=== PATIENT | male | born 1945 | race Caucasian/White ===

== ENCOUNTER 2021-11-03 16:22 | Observation (INO) | payer OTHER ==
[2021-11-03 17:13] LABS: Absolute Lymphocytes (CBC) 2.1 K/uL (0.7-4.9); Hematocrit 41.1 % (39.6-49.0); Lymphocytes % 21.7 % (15.3-44.8); MPV 8.4 fL (7.6-11.3); RBC Red Blood Cell Count 4.44 M/uL (4.33-5.43)
[2021-11-03 17:17] LABS: Protime INR 0.98
[2021-11-03 17:33] LABS: Albumin 3.4 g/dL (3.4-5.0); Bilirubin Direct 0.1 mg/dL (0-0.2); Bilirubin Total 0.4 mg/dL (0.2-1.0); Magnesium 2.2 mg/dL (1.8-2.4); Potassium 4.2 mmol/L (3.5-5.1); Protein, Total 6.7 g/dL (6.4-8.2); Troponin High Sensitivity 6.9 pg/mL (<58.9)
[2021-11-03] MEDS ORDERED: NA CHLORIDE 0.9% 500 ML ONE (18:03)
--- NOTE | 2021-11-03 18:08 | RAD REPORT ---
EXAM DESCRIPTION: CT - Head Brain Wo Cont - 11/03/2021 5:57 pm CLINICAL HISTORY: Syncope COMPARISON: None TECHNIQUE: Computed axial tomography of the head was obtained. IV contrast was not requested. All CT scans are performed using dose optimization technique as appropriate and may include automated exposure control or mA/KV adjustment according to patient size. FINDINGS: An intracranial bleed is not seen . The ventricles are normal in caliber. No extra-axial fluid collection is noted. Mild cerebral atrophy Fluid within the sinuses/ mastoids is not seen. IMPRESSION: No acute intracranial abnormality is seen. If patient's symptoms persist MRI of the bra in would be recommended.
--- NOTE | 2021-11-03 18:10 | RAD REPORT ---
EXAM DESCRIPTION: Maira Single View11/03/2021 5:06 pm CLINICAL HISTORY: Syncope COMPARISON: none FINDINGS: The lungs appear clear of acute infiltrate. The heart is borderline enlarged IMPRESSION: No acute abnormalities displayed
--- NOTE | 2021-11-03 18:31 | ER ---
Nurse's Notes [facility] Name: Justice Duque Jr Age: 76 yrs Sex: Male : 1945 Arrival Date: 11/03/2021 Time: 16:23 Bed 8 Private MD: Diagnosis: Syncope Presentation: 11/03 16:23 Chief complaint: EMS states: "the pt was at a dermatology clinic. he was being treated jd3 for pre cancerous spots on the inside portion of his arms. upon finishing his treatment he had a syncope episode. upon waking up, he felt nauseous and vomited. we started a 20 G IV to the right AC and gave 4 mg of Zofran and about 100 ml of NS.". Coronavirus screen: At this time, the client does not indicate any symptoms associated with coronavirus-19. Ebola Screen: No symptoms or risks identified at this time. Initial Sepsis Screen: Does the patient meet any 2 criteria? No. Patient's initial sepsis screen is negative. Does the patient have a suspected source of infection? No. Patient's initial sepsis screen is negative. Risk Assessment: Do you want to hurt yourself or someone else? Patient reports no desire to harm self or others. Onset of symptoms was November 03, 2021. 16:23 Method Of Arrival: EMS: [facility] jd3 16:23 Acuity: TC 2 jd3 Triage Assessment: 16:30 General: Appears distressed, comfortable, Behavior is cooperative, appropriate for age, bp anxious. Pain: Denies pain. EENT: No deficits noted. Neuro: Level of Consciousness is awake, alert, obeys commands, Oriented to Appropriate for age. Cardiovascular: Rhythm is sinus rhythm. Respiratory: No deficits noted. GI: No signs and/or symptoms were reported involving the gastrointestinal system. : No signs and/or symptoms were reported regarding the genitourinary system. Derm: No deficits noted. Musculoskeletal: No deficits noted. 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 - Social history:: Smoking status: Patient/guardian denies using tobacco, but has a distant history of tobacco abuse. Screenin:30 Abuse screen: Denies threats or abuse. Denies injuries from another. Nutritional bp screening: No deficits noted. Tuberculosis screening: No symptoms or risk factors identified. Fall Risk None identified. Assessment: 16:30 General: SEE TRIAGE NOTE. bp 17:47 Reassessment: No changes from previously documented assessment. Patient and/or family bp updated on plan of care and expected duration. Pain level reassessed. PT TO CT. 18:30 Reassessment: ADMIT INITIATED. bp 19:56 General: Appears in no apparent distress. comfortable, Behavior is calm, cooperative. al4 Pain: Denies pain. Neuro: Level of Consciousness is awake, alert, obeys commands, Oriented to person, place, time, situation. Cardiovascular: Capillary refill < 3 seconds Patient's skin is warm and dry. Respiratory: Airway is patent Respiratory effort is unlabored, Respiratory pattern is regular. Musculoskeletal: Range of motion: intact in all extremities. 20:01 Reassessment: I had a detailed discussion with patient and family member on the risks al4 vs benefits of leaving AMA. Patient and family member demonstrated understanding and would still like to leave. Vital Signs: 16:29 BP 149 / 72; Pulse 76; Resp 19 S; Temp 97.7(TE); Pulse Ox 95% on R/A; Weight 70.31 kg jd3 (R); Height 5 ft. 9 in. (175.26 cm) (R); Pain 0/10; 17:13 BP 145 / 83 Supine; mb7 17:13 BP 140 / 82 Standing; mb7 17:47 BP 128 / 84; Pulse 67; Resp 16; Pulse Ox 100% ; bp 18:30 BP 140 / 80; Pulse 81; Resp 27; Pulse Ox 99% ; bp 19:00 BP 140 / 76; Pulse 78; Resp 24 S; Pulse Ox 98% on R/A; al4 20:00 BP 133 / 71; Pulse 84; Resp 24 S; Pulse Ox 99% on R/A; al4 16:29 Body Mass Index 22.89 (70.31 kg, 175.26 cm) [facility] ED Course: 16:23 Patient arrived in ED. jd3 16:28 Triage completed. jd3 16:28 Dejon Matson PA is PHCP. cp 16:28 Dejon Santiago MD is Attending Physician. cp 16:29 Arm band placed on. EKG completed in triage. Results shown to . jd3 16:30 Patient has correct armband on for positive identification. Bed in low position. Call bp light in reach. Side rails up X2. Adult w/ patient. research and development engineer on. Pulse ox on. NIBP on. 16:30 Maintain EMS IV. Dressing intact. Good blood return noted. Site clean \\T\\ dry. Gauge \\T\\ bp site: 20 GAUGE R AC. 16:35 Brian Hurley, RN is Primary Nurse. bp 17:06 XRAY Chest (1 view) In Process Unspecified. EDMS 17:57 CT Head Brain wo Cont In Process Unspecified. EDMS 18:31 Prince Tomas MD is Hospitalizing Provider. cp 20:02 No provider procedures requiring assistance completed. IV discontinued, intact, al4 bleeding controlled, No redness/swelling at site. Pressure dressing applied. Administered Medications: 18:00 Drug: NS 0.9% 250 ml Route: IV; Rate: bolus; Site: right antecubital; bp 18:00 Drug: NS 0.9% 250 ml Route: IV; Rate: 125 ml/hr; Site: right antecubital; bp Outcome: 18:31 Decision to Hospitalize by Provider. cp 20:03 AMA AMA form signed al4 20:03 Condition: stable 20:03 Instructed on risks vs benefits of leaving AMA 20:14 Patient left the ED. al4 Signatures: Dispatcher [employer] EDMO Dejon Matson PA PA cp Davies, Jonathon RN Brian Perea, RN RN Marsha Freire mb7 Erlin Araya al4 Corrections: (The following items were deleted from the chart) 16:37 16:30 Patient has correct armband on for positive identification. Bed in low position. bp Call light in reach. Side rails up X2. Adult w/ patient. bp 16:37 16:30 Pulse ox on. NIBP on. bp bp 01 04:25 02/28 20:01 Reassessment: I had a detailed discussion with patient and family member on al4 the risks vs benefits of leaving AMA. Patient and family member demonstrated understanding. al4
--- NOTE | 2021-11-03 18:31 | EDPHYS ---
Physician Documentation [facility] Name: Justice Duque Jr Age: 76 yrs Sex: Male : 1945 Arrival Date: 11/03/2021 Time: 16:23 Bed 8 Private MD: Dejon Tirado HPI: 11/03 16:45 This 76 yrs old Male presents to ER via EMS with complaints of Syncope. cp 16:45 The patient has experienced syncope, lost consciousness. Onset: The symptoms/episode cp began/occurred just prior to arrival. Duration: This was a single episode, that lasted an unknown period of time. 16:45 Associated injury: The patient did not suffer any apparent associated injury. cp 16:45 Associated signs and symptoms: Pertinent positives: lightheadedness, Pertinent cp negatives: abdominal pain, chest pain, confusion, diarrhea, headache, numbness, palpitations, seizure, vomiting, weakness. Patient reports he was at dermatology clinic today preparing to have procedure for skin cancer when he became lightheaded and had syncopal episode while seated. 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 - Social history:: Smoking status: Patient/guardian denies using tobacco, but has a distant history of tobacco abuse. ROS: 16:50 Constitutional: Negative for body aches, chills, fever, poor PO intake. cp 16:50 Eyes: Negative for injury, pain, redness, and discharge. cp 16:50 ENT: Negative for ear pain, sore throat, difficulty swallowing, difficulty handling secretions. 16:50 Neck: Negative for pain with movement, pain at rest, stiffness. 16:50 Cardiovascular: Negative for chest pain, edema, palpitations. 16:50 Respiratory: Negative for cough, shortness of breath, wheezing. 16:50 Abdomen/GI: Negative for abdominal pain, nausea, vomiting, and diarrhea, constipation. 16:50 Back: Negative for pain at rest, pain with movement. 16:50 Neuro: Positive for syncope, Negative for altered mental status, dizziness, headache, numbness, weakness. 16:50 All other systems are negative. Exam: 16:27 ECG was reviewed by the Attending Physician. cp 16:55 Constitutional: The patient appears in no acute distress, alert, awake, comfortable, cp non-diaphoretic, non-toxic, well developed, well nourished. 16:55 Head/Face: Normocephalic, atraumatic. cp 16:55 Eyes: Periorbital structures: appear normal, Pupils: equal, round, and reactive to light and accomodation, Extraocular movements: intact throughout, Conjunctiva: normal, no exudate, no injection, Sclera: no appreciated abnormality, Lids and lashes: appear normal, bilaterally. 16:55 ENT: External ear(s): are unremarkable, Nose: is normal, Mouth: Lips: moist, Oral mucosa: pink and intact, moist, Posterior pharynx: Airway: no evidence of obstruction, patent. 16:55 Neck: ROM/movement: is normal, is supple, without pain, no range of motions limitations. 16:55 Chest/axilla: Inspection: normal, Palpation: is normal, no crepitus, no tenderness. 16:55 Cardiovascular: Rate: normal, Rhythm: regular, Edema: is not appreciated, JVD: is not appreciated. 16:55 Respiratory: the patient does not display signs of respiratory distress, Respirations: normal, no use of accessory muscles, no retractions, labored breathing, is not present, Breath sounds: are clear throughout, no decreased breath sounds, no stridor, no wheezing. 16:55 Abdomen/GI: Inspection: abdomen appears normal, Bowel sounds: active, all quadrants, Palpation: abdomen is soft and non-tender, in all quadrants. 16:55 Back: pain, is absent, ROM is normal. 16:55 Neuro: Orientation: to person, place \\T\\ time. Mentation: is normal, Cerebellar function: Romberg testing is negative, Motor: moves all fours, strength is normal, Sensation: is normal. Vital Signs: 16:29 BP 149 / 72; Pulse 76; Resp 19 S; Temp 97.7(TE); Pulse Ox 95% on R/A; Weight 70.31 kg jd3 (R); Height 5 ft. 9 in. (175.26 cm) (R); Pain 0/10; 17:13 BP 145 / 83 Supine; mb7 17:13 BP 140 / 82 Standing; mb7 17:47 BP 128 / 84; Pulse 67; Resp 16; Pulse Ox 100% ; bp 18:30 BP 140 / 80; Pulse 81; Resp 27; Pulse Ox 99% ; bp 19:00 BP 140 / 76; Pulse 78; Resp 24 S; Pulse Ox 98% on R/A; al4 20:00 BP 133 / 71; Pulse 84; Resp 24 S; Pulse Ox 99% on R/A; al4 16:29 Body Mass Index 22.89 (70.31 kg, 175.26 cm) jd3 MDM: 16:30 Patient medically screened. [facility] 18:30 Data reviewed: vital signs, nurses notes, lab test result(s), EKG, radiologic studies, cp CT scan, plain films. 18:30 Test interpretation: by ED physician or midlevel provider: ECG, plain radiologic cp studies. Counseling: I had a detailed discussion with the patient and/or guardian regarding: the historical points, exam findings, and any diagnostic results supporting the discharge/admit diagnosis, lab results, radiology results, recommendation for continued observation. Physician consultation: Jluis Hameed was called at 18:30, was contacted at 18:30, regarding admission, to the telemetry unit. patient's condition. 11/03 16:39 Order name: Basic Metabolic Panel; Complete Time: 17:39 cp 11/03 17:39 Interpretation: Normal except: CL 110; GLUC 107; GFR 64; CA 8.4. cp 11/03 16:39 Order name: CBC with Diff; Complete Time: 17:22 cp 11/03 17:22 Interpretation: Normal except: EOSINOPHIL % 6.1; EOSA 0.6. cp 11/03 16:39 Order name: LFT's; Complete Time: 17:39 cp 11/03 16:39 Order name: Magnesium; Complete Time: 17:39 cp 11/03 16:39 Order name: NT PRO-BNP; Complete Time: 17:39 cp 11/03 16:39 Order name: PT-INR; Complete Time: 17:22 cp 11/03 16:39 Order name: Troponin HS; Complete Time: 17:39 cp 11/03 16:39 Order name: XRAY Chest (1 view); Complete Time: 18:23 cp 11/03 18:23 Interpretation: Report review. cp 11/03 16:39 Order name: EKG; Complete Time: 16:40 cp 11/03 16:39 Order name: Cardiac monitoring; Complete Time: 16:58 cp 11/03 17:23 Order name: CT Head Brain wo Cont; Complete Time: 18:23 cp 11/03 18:24 Interpretation: Report reviewed. 11/03 18:34 Order name: SARS-COV-2 RT PCR (Document "Date of Onset" if Symptomatic) iw 11/03 16:39 Order name: EKG - Nurse/Tech; Complete Time: 16:58 cp 11/03 16:39 Order name: IV Saline Lock; Complete Time: 16:58 cp 11/03 16:39 Order name: Labs collected and sent; Complete Time: 17:04 cp 11/03 16:39 Order name: O2 Per Protocol; Complete Time: 16:58 cp 11/03 16:39 Order name: O2 Sat Monitoring; Complete Time: 16:58 cp 11/03 16:48 Order name: Orthostatics; Complete Time: 17:47 cp EC:27 Rate is 75 beats/min. Rhythm is regular. [place] interval is normal. QRS interval is normal. cp QT interval is normal. T waves are Inverted in lead aVR. Interpreted by me. Reviewed by me. Administered Medications: 18:00 Drug: NS 0.9% 250 ml Route: IV; Rate: bolus; Site: right antecubital; bp 18:00 Drug: NS 0.9% 250 ml Route: IV; Rate: 125 ml/hr; Site: right antecubital; bp Disposition Summary: 11/03/21 19:50 Left Against Medical Advice Location: Home(11/03/21 19:50) cp Problem: new(11/03/21 19:50) cp Symptoms: have improved(11/03/21 19:50) cp Condition: Stable(11/03/21 19:50) cp Diagnosis - Syncope cp Followup: cp - With: Private Physician - When: 1 - 2 days - Reason: Recheck today's complaints Discharge Instructions: - Discharge Summary Sheet cp - Syncope cp Signatures: Dispatcher [employer] EDDejon Moreno MD MD cha Page, Corey, PA PA cp Kennedy, David, RN RN jd3 Xavi, , RN RN bp Corrections: (The following items were deleted from the chart) 19:49 18:31 Observation cp cp 19:49 18:31 Prince Genoveva cp cp 19:49 18:31 Telemetry/MedSurg (observation) cp cp 19:49 18:31 Stable cp cp 19:49 18:31 new cp cp 19:49 18:31 have improved cp cp 19:49 18:31 Standard cp cp 19:49 18:31 cp cp 19:49 18:31 Syncope cp cp
[2021-11-03 20:27] VITALS: TEMP 97.7
[2021-11-03 20:33] VITALS: BP 133/71; O2SAT 99
--- NOTE | 2021-11-04 09:11 | EKG ---
Test Date: 2021-11-03 Test Time: 16:21:51 [employer]ger: TORSTEN MEASUREMENT RESULTS: Intervals: Rate: 75 TX: 156 QRSD: 88 QT: 408 QTc: 455 [place]: P: 62 TX: 156 QRS: 61 T: 58 INTERPRETIVE STATEMENTS: Sinus rhythm with occasional premature ventricular complexes Otherwise normal ECG No previous ECG available for comparison Electronically Signed On 11-04-21 09:09:12 COUNTER CLERK [employer] by Rigo Gallegos
== END 2021-11-03 20:15 | disposition left against medical advice (07) ==
LOC: ER 16:22 → ERHOLD 19:39
PROVIDERS: ADMIT Internal Medicine; ATTEND Internal Medicine
DX: R55 Syncope and collapse (principal); I10 Essential (primary) hypertension; Z53.29 Procedure and treatment not carried out because of patient's decision for other reasons; Z20.822 Contact with and (suspected) exposure to COVID-19
CPT/HCPCS: 93005; 85025; 80048; 36415; 83735; 85610; 80076; 84484; 83880; 70450; 71045; 96374; 99284; J7040; G0378